=== PATIENT | female | born 1945 | race Caucasian/White ===

== ENCOUNTER 2020-05-14 07:21 | Day surgery (SDC) | payer MEDICARE ==
[~2020-05-14] VITALS: Ht 162.6 cm; Wt 75.8 kg
[~2020-05-14 07:21] MED LIST: COREG25 MG PO; FLECAINIDE ACE100 MG PO; HYDROCHLOROTH12.5 M1 PO; LISINOPRIL10 MG
[2020-05-14 07:52] LABS: ANION GAP 10.4 mmol/L (8-16); CALCIUM 8.9 mg/dL (8.5-10.1); CARBON DIOXIDE 31.6 mmol/L (21.0-32.0); CREATININE - SERUM 0.8 mg/dL (0.6-1.3)
[2020-05-14 08:02] LABS: BASOPHILS 0.3 % (0-2); EOSINOPHILS 2.5 % (0-7); HEMATOCRIT 45.2 % (36.0-48.0); HEMOGLOBIN 14.7 g/dL (12-16); IMMATURE GRANULOCYTES 0.2 % (0-5); LYMPHOCYTES 25.8 % (15-50); MCH 30.8 pg (26.0-34.0); MCHC 32.5 g/dL (31.0-37.0); MCV 94.6 fL (80.0-100.0); MEAN PLATELET VOLUME 10.4 fL (7.4-10.4); MONOCYTES 9.4 % (2-11); NEUTROPHILS 61.8 % (40-80); PLATELET COUNT 261 10x3/uL (130-400); RBC 4.78 10x6/uL (4.00-5.40); RDW 12.9 % (11.5-14.5); WBC 5.9 10x3/uL (4.8-10.8)
[2020-05-14 08:03] LABS: INR 1.03 (0.85-1.17); PROTIME 13.4 SECONDS (11.6-15.0)
[2020-05-14 08:04] LABS: APTT 33.4 SECONDS (22.8-39.4)
[2020-05-14 08:09] VITALS: BP 123/73; Ht 162.6 cm; Wt 75.8 kg
--- NOTE | 2020-06-02 15:36 | OP ---
PATIENT NAME: EVGENY BALLARD MEDICAL RECORD: [id number] :47 LOCATION:D.OPS ADMISSION DATE: SURGEON: IRVIN BONILLA MD DATE OF OPERATION: 05/14/2020 PREOPERATIVE DIAGNOSIS: Anorectal mass. POSTOPERATIVE DIAGNOSIS: History of anorectal mass, which appears to have been completely excised endoscopically. PROCEDURE: Anal evaluation under anesthesia. SURGEON: Irvin Bonilla MD CHARGING BOARD OPERATOR: None. BLOOD LOSS: Minimal. ANESTHESIA: General. COMPLICATIONS: None. OPERATIVE COURSE: The patient was conveyed to the operating room electively on 05/14/2020. General anesthesia was induced by the anesthesia staff. The patient was positioned in the lithotomy position. The anus and perianal area was sterilely prepped and draped. U-shaped anal retractors were placed. I examined the anus. I examined the lower rectum. I examined them very carefully for a pretty lengthy period of time. I noted no residual anorectal mass. Gelfoam was applied within the anus and lower rectum. A combination of sterile preparation and Marcaine were used to infiltrate the perianal tissues. Americaine was applied to the external hemorrhoids. The patient was then extubated and conveyed to post-anesthesia care unit. I will plan for her next endoscopic procedure, which will be a flexible proctoscopy to take place with the argon plasma quilting supervisor in 1-2 years. TRANSINT:[id number] Voice Confirmation ID: [id number] DOCUMENT ID: [id number] IRVIN BONILLA MD at 1536 CC: [id number] DICTATION DATE: 06/02/20 1356 STOCK LETTERER: 06/02/20 1519 [facility] 05/14/[address] [id number]
== END 2020-05-14 18:05 | disposition home or self-care (01) ==
LOC: D.OPS 07:21 → D.PAN 12:00 → D.OPS 12:00
PROVIDERS: Anesthesiology; Surgery; ATTEND Surgery
DX: R19.00 Intra-abdominal and pelvic swelling, mass and lump, unspecified site (principal)